=== PATIENT | female | born 1930 | race Caucasian/White ===

== ENCOUNTER 2018-10-24 19:42 | Emergency (ER) | payer OTHER ==
[~2018-10-24] VITALS: Ht 147.3 cm; Wt 40.8 kg
[2018-10-24] MEDS ORDERED: LOPRESSOR25 MG (20:57)
[2018-10-24] MEDS ORDERED: LIPITOR20 MG (20:57)
[2018-10-24] MEDS ORDERED: PLAVIX75 MG (20:58)
[2018-10-24] MEDS ORDERED: ASPIR 8181 MG (20:58)
[2018-10-24] MEDS ORDERED: PEPCID40 MG/5 ML (20:59)
== END 2018-10-25 00:42 ==
LOC: ER 19:42
DX: R55 Syncope and collapse (principal); N39.0 Urinary tract infection, site not specified; B96.29 Other Escherichia coli [E. coli] as the cause of diseases classified elsewhere

== ENCOUNTER 2019-10-09 10:47 | Emergency (ER) | payer OTHER ==
[~2019-10-09] VITALS: Ht 139.7 cm; Wt 36.3 kg
[~2019-10-09 10:47] MED LIST: ASPIR 8181 MG; LIPITOR20 MG; LOPRESSOR25 MG; PEPCID40 MG/5 ML; PLAVIX75 MG
== END 2019-10-09 18:29 | disposition home or self-care (01) ==
LOC: ER 10:47
DX: G40.89 Other seizures (principal); G31.89 Other specified degenerative diseases of nervous system; F01.51 Vascular dementia, unspecified severity, with behavioral disturbance; I10 Essential (primary) hypertension; Z74.01 Bed confinement status